=== PATIENT | female | born 1950 | race Caucasian/White ===

== ENCOUNTER 2017-03-25 20:50 | Emergency (ER) | payer SELFPAY ==
--- NOTE | 2017-03-25 21:08 | PDOC ---
Attending Attestation - Resident Resident Name: Yvon Gonzalez - ED Attending Attestation I have performed the following: I have examined & evaluated the patient, The case was reviewed & discussed with the resident, I agree w/resident's findings & plan, Exceptions are as noted - HPI HPI: 03/25/17 23:46 66 yo female has felt lightheaded and fatigued -she DENIES chest pain,dyspnea,abdominal pain,visual changes 03/25/17 23:53 - Physicial Exam PE: 03/25/17 23:47 wnwd 66 yo presents alert and converant. States she felt light headed and "out of sorts" Neuro no gross focal neuro deficits, motor strength 5/5 bilaterally. no ataxia, she able to ambulate to go to bathroom,no facial droop, no slurred speech,no numbness,no tingling head - normocephalic,nontraumatic eyes efrem eomi lungs cta b/l cvs [id number] abd soft,nontender extremities full range of motion,no deformity - Medical Decision Making 03/26/17 00:12 pt discharged home/ ct head no acute intracranial pathology.neuro no focal neuro deficits/ labs unremarkable, ekg nsr,neg trop
[2017-03-25] MEDS ORDERED: MECLIZINE HCL 25 MG TABLET (FP) PO ONE (21:22)
--- NOTE | 2017-03-25 21:23 | PDOC ---
History of Present Illness - General Stated Complaint: DIZZINIES/NAUSEAU Time Seen by Provider: 03/25/17 21:05 History Source: Patient Exam Limitations: No Limitations - History of Present Illness Initial Comments: 03/25/17 21:29 66 y.o. F with unknown pmh presenting with lightheadedness. Patient states she began having cold symptoms on Friday night and then began feeling lightheaded x 2 hours. Patient states she feels lightheaded at rest, but worsens upon sitting up. Patient endorses mild nausea as well as cold symptoms (malaise, cough). Patient denies fever,chills, vomiting, chest pain, sob, abdominal pain, neurological symptoms. PSH: denies All: nkda SH: denies PCP: Does not have one currently Review of Systems - Review of Systems Able to Perform ROS?: Yes Comments:: 03/25/17 21:31 GENERAL/CONSTITUTIONAL: No fever or chills. No weakness. HEAD, EYES, EARS, NOSE AND THROAT: No change in vision. No ear pain or discharge. No sore throat. CARDIOVASCULAR: No chest pain or shortness of breath RESPIRATORY: +cough, No wheezing, or hemoptysis. GASTROINTESTINAL: +nausea, No vomiting, diarrhea or constipation. GENITOURINARY: No dysuria, frequency, or change in urination. MUSCULOSKELETAL: No joint or muscle swelling or pain. No neck or back pain. SKIN: No rash NEUROLOGIC: No headache, vertigo, loss of consciousness, or change in strength/ sensation. ENDOCRINE: No increased thirst. No abnormal weight change HEMATOLOGIC/LYMPHATIC: No anemia, easy bleeding, or history of blood clots. ALLERGIC/IMMUNOLOGIC: No hives or skin allergy. *Physical Exam - Physical Exam Comments: 03/25/17 21:32 GENERAL: Awake, alert, and fully oriented, in no acute distress HEAD: No signs of trauma, normocephalic, atraumatic EYES: PERRLA, EOMI, sclera anicteric, conjunctiva clear ENT: Auricles normal inspection, hearing grossly normal, nares patent, oropharynx clear without exudates. Dry mucosa NECK: Normal ROM, supple, no lymphadenopathy, JVD, or masses. No carotid bruits LUNGS: No distress, speaks full sentences, clear to auscultation bilaterally HEART: Regular rate and rhythm, normal S1 and S2, no murmurs, rubs or gallops, peripheral pulses normal and equal bilaterally. ABDOMEN: Soft, nontender, normoactive bowel sounds. No guarding, no rebound. No masses EXTREMITIES: Normal inspection, Normal range of motion, no edema. No clubbing or cyanosis. NEUROLOGICAL: Cranial nerves II through XII grossly intact. Normal speech, normal gait, no focal sensorimotor deficits SKIN: Warm, Dry, normal turgor, no rashes or lesions noted. Medical Decision Making - Medical Decision Making 03/25/17 21:32 66 y.o. F with unknown pmh presenting with lightheadedness. Plan: cbc, cmp, sx control, ekg, cardiac profile
[2017-03-25 21:36] VITALS: TEMP 98; BMI 35.9
[2017-03-25] MEDS ORDERED: MECLIZINE HCL 25 MG TABLET (FP) ONE (21:38)
[2017-03-25 21:54] LABS: BASOPHIL 0.7 % (0-2.0); EOSINOPHIL 1.4 % (0-4.5); MCH 26.2 pg (25.7-33.7); MCHC 33.3 g/dl (32.0-36.0); MEAN CELL VOLUME 78.6 fl (80-96); MEAN PLT VOLUME 8.6 fl (7.5-11.1); PLATELET COUNT 241 K/MM3 (134-434); RDW 14.4 % (11.6-15.6); WHITE BLOOD COUNT 6.6 K/mm3 (4.0-10.0)
[2017-03-25 22:24] LABS: ALBUMIN 3.5 g/dl (3.4-5.0); ANION GAP 10 (8-16); BILIRUBIN,TOTAL 0.2 mg/dL (0.2-1.0); CO2 28 mmol/L (21-32); CREATININE 0.6 mg/dL (0.55-1.02); GLUCOSE,RANDOM 113 mg/dL (74-106); SGOT/AST 9 U/L (15-37); SGPT/ALT 20 U/L (12-78); TOT PROT 6.9 g/dl (6.4-8.2)
[2017-03-25 22:26] LABS: ALK PHOS 88 U/L (45-117); CPK 43 IU/L (26-192); TROPONIN I < 0.02 ng/ml (0.00-0.05)
[2017-03-25 22:31] LABS: URINE APPEARANCE CLEAR; URINE BILIRUBIN NEGATIVE (NEGATIVE); URINE BLOOD 1+ (NEGATIVE); URINE COLOR STRAW; URINE GLUCOSE (UA) NEGATIVE (NEGATIVE); URINE KETONE NEGATIVE (NEGATIVE); URINE NITRITE NEGATIVE (NEGATIVE); URINE PROTEIN NEGATIVE (NEGATIVE); URINE UROBILINOGEN NEGATIVE mg/dL (0.2-1.0)
[2017-03-25 22:41] LABS: URINE MUCUS RARE; URINE RBC <1 /hpf (0-3); URINE WBC <1 /hpf (3-5)
--- NOTE | 2017-03-25 23:08 | PDOC ---
NIH Stroke Scale - Last Known Well Date/Time & Onset Date Last Known Well: 03/25/17 Time Last Known Well: 08:00 - Initial Evaluation Level of consciousness: Alert Ask patient the month and their age: Answers both correctly Ask patient to open & close eyes; make fist and let go: Obeys both correctly Best gaze (horizontal eye movement): Normal Visual field testing: No visual field loss Facial paresis (Show teeth/raise eyebrows/close eyes tight): Normal symmetrical movement Motor Function: Left Arm: Normal Motor Function: Right Arm: Normal (extends arm 90 (or 45) degrees for 10 seconds without drift Motor Function: Left Leg: Normal (extends leg 30 degrees for 5 seconds without drift) Motor Function: Right Leg: Normal (extends leg 30 degrees for 5 seconds without drift) Limb Ataxia: No ataxia Sensory(Use pinprick test arms,legs,trunk,face/side to side): Normal Best language (Describe picture, name items, read sentences): No Aphasia Dysarthria (read several words): Normal articulation Extinction and Inattention: No abnormality - Total Score NIH Stroke Scale Score: 0
--- NOTE | 2017-03-26 00:15 | PDOC ---
*Physical Exam - Vital Signs Last Vital Signs Temp Pulse Resp BP Pulse Ox 98 F 82 18 148/78 98 03/25/17 21:35 03/25/17 21:35 03/25/17 21:35 03/25/17 21:35 03/25/17 21:35 ED Treatment Course - LABORATORY CBC & Chemistry Diagram: 03/25/17 21:30 03/25/17 21:30 - ADDITIONAL ORDERS Additional order review: Laboratory Results 03/25/17 03/25/17 22:23 21:30 Sodium 139 Potassium 3.5 Chloride 101 Carbon Dioxide 28 Anion Gap 10 BUN 10 Creatinine 0.6 Creat Clearance w eGFR > 60 Random Glucose 113 H Calcium 8.0 L Total Bilirubin 0.2 AST 9 L ALT 20 Alkaline Phosphatase 88 Creatine Kinase 43 Troponin I < 0.02 Total Protein 6.9 Albumin 3.5 Urine Color Straw Urine Appearance Clear Urine pH 6.0 Urine Protein Negative Urine Glucose (UA) Negative Urine Ketones Negative Urine Blood 1+ H Urine Nitrite Negative Urine Bilirubin Negative Urine Urobilinogen Negative Urine RBC <1 Urine WBC <1 Ur Epithelial Cells Rare Urine Mucus Rare 03/25/17 21:30 RBC 4.82 MCV 78.6 L MCHC 33.3 RDW 14.4 MPV 8.6 Neutrophils % 63.0 Lymphocytes % 28.4 Monocytes % 6.5 Eosinophils % 1.4 Basophils % 0.7 - RADIOLOGY Radiology Studies Ordered: Category Date Time Status HEAD CT WITHOUT CONTRAST [CT] Stat CT Scan 03/25/17 22:20 Completed CHEST X-RAY PORTABLE* [RAD] Stat Radiology 03/25/17 22:19 Taken - Medications Given in the ED: ED Medications Discontinued Medications Generic Name Dose Route Start Last Admin Trade Name Tiffanie PRN Reason Stop Dose Admin Meclizine HCl 25 mg 03/25/17 21:22 03/25/17 21:40 Antivert - PO 03/25/17 21:23 25 mg ONCE ONE Administration *DC/Admit/Observation/Transfer Diagnosis at time of Disposition: Lightheadedness - Discharge Dispostion Disposition: HOME Condition at time of disposition: Stable - Patient Instructions Printed Discharge Instructions: DI for Dizziness-Nonvertigo Additional Instructions: please folow up with a doctor Our clinic is at [address] [place] [address]
[2017-03-26 00:19] LABS: INR 1.04 (0.82-1.09); PROTHROMBIN TIME (PATIENT) 11.7 SEC (9.98-11.88)
[2017-03-26 00:25] VITALS: BP 141/67; PULSE 87
[2017-03-26 08:58] LABS: URINE LEUK ESTERASE Negative (NEGATIVE)
--- NOTE | 2017-03-26 11:48 | EKG ---
Test Reason : Blood Pressure : / mmHG Vent. Rate : 082 BPM Atrial Rate : 082 BPM P-R Int : 166 ms QRS Dur : 086 ms QT Int : 396 ms P-R-T Axes : 060 019 056 degrees QTc Int : 462 ms NORMAL SINUS RHYTHM NORMAL ECG WHEN COMPARED WITH ECG OF 22-APR-2008 14:40, NO SIGNIFICANT CHANGE WAS FOUND Confirmed by MEE DE GUZMAN MD ([id number]) on 03/26/2017 11:48:27 AM Referred By: Confirmed By:MEE DE GUZMAN MD
== END 2017-03-26 00:31 | disposition home or self-care (01) ==
LOC: JER 20:50
DX: R42 Dizziness and giddiness (principal)
CPT/HCPCS: 36415; 70450-TC; 71010-TC; 80053; 81003; 81015; 82550; 84484; 85025; 85610; 86850; 86900; 86901; 93005; 93010; 99283-25

== ENCOUNTER 2023-06-23 21:34 | Emergency (ER) | payer OTHER ==
[2023-06-23 21:39] VITALS: RESP 18; TEMP 98.3; BMI 37.5
[2023-06-23] MEDS ORDERED: LIDOCAINE 4% PATCH TP ONE ×2 (22:08→22:11)
[2023-06-23] MEDS ORDERED: FAMOTIDINE 20 MG/50 ML IVPB 20 MG/50 ML MG IVPB ONE ×2 (22:24→22:40)
[2023-06-23] MEDS ORDERED: MAG HYDROX/AL HYDROX/SIMETH 30 ML UNIT-DOSE CUP PO ONE (22:24)
[2023-06-23] MEDS ORDERED: KETOROLAC TROMETHAMINE 15 MG/ML VIAL IVPUSH ONE (22:25)
[2023-06-23 22:31] LABS: BASO % 1.1 % (0-2.0); EOS % 1.3 % (0-4.5); HEMATOCRIT 37.9 % (32.4-45.2); HEMOGLOBIN 12.4 GM/dL (10.7-15.3); LYMPH % 38.8 % (8-40); MCH 26.1 pg (25.7-33.7); MCHC 32.6 g/dl (32.0-36.0); MEAN CELL VOLUME 80.1 fl (80-96); MEAN PLT VOLUME 8.5 fl (7.5-11.1); NEUT % 51.8 % (42.8-82.8); PLATELET COUNT 315 10^3/uL (134-434); RBC 4.74 M/mm3 (3.60-5.2); WHITE BLOOD COUNT 7.9 K/mm3 (4.0-10.0)
[2023-06-23] MEDS ORDERED: MAG HYDROX/AL HYDROX/SIMETH 30 ML UNIT-DOSE CUP ONE (22:40)
[2023-06-23] MEDS ORDERED: KETOROLAC TROMETHAMINE 15 MG/ML VIAL ONE (22:40)
[2023-06-23 22:41] LABS: INR 1.07 (0.83-1.09); PROTHROMBIN TIME (PATIENT) 12.4 SEC (9.7-13.0)
[2023-06-23 22:43] LABS: ACTIVATED PTT 30.5 SECONDS (25.2-36.5); POTASSIUM 4.3 mmol/L (3.5-5.1)
[2023-06-23 22:44] LABS: CALCIUM 8.6 mg/dL (8.5-10.1)
[2023-06-23 22:46] LABS: ALBUMIN 3.4 g/dl (3.4-5.0); BLOOD UREA NITROGEN 16.4 mg/dL (7-18); MAGNESIUM 1.9 mg/dL (1.8-2.4)
[2023-06-23 22:49] LABS: CREATININE 0.7 mg/dL (0.55-1.3)
[2023-06-23 22:50] LABS: BILIRUBIN,TOTAL 0.2 mg/dL (0.2-1); TOT PROT 6.9 g/dl (6.4-8.2)
[2023-06-23] MEDS ORDERED: BUPRENORPHINE/NALOXONE 8 MG/2 MG FILM PACKET SL ONE (23:10)
[2023-06-23 23:18] LABS: URINE APPEARANCE CLEAR; URINE BILIRUBIN NEGATIVE (NEGATIVE); URINE COLOR YELLOW; URINE GLUCOSE (UA) NEGATIVE (NEGATIVE); URINE KETONE NEGATIVE (NEGATIVE); URINE LEUK ESTERASE NEGATIVE (NEGATIVE); URINE NITRITE NEGATIVE (NEGATIVE); URINE PROTEIN NEGATIVE (NEGATIVE); URINE UROBILINOGEN 0.2 mg/dL (0.2-1.0)
[2023-06-24 00:13] VITALS: BP 122/86; PULSE 76
[2023-06-24] MEDS ORDERED: LIDOCAINE PATCH REMOVAL MC ONE (22:00)
== END 2023-06-24 00:13 | disposition home or self-care (01) ==
LOC: JER 21:34
PROC: 3E033GC Introduction of Other Therapeutic Substance into Peripheral Vein, Percutaneous Approach (ICD-10-PCS; principal; 2023-06-23)
PROC: 3E0333Z Introduction of Anti-inflammatory into Peripheral Vein, Percutaneous Approach (ICD-10-PCS; 2023-06-23)
DX: R07.9 Chest pain, unspecified (principal); M54.50 Low back pain, unspecified; M54.6 Pain in thoracic spine; R10.13 Epigastric pain
CPT/HCPCS: 36415; 71046-TC-FY; 80053; 81003; 83690; 83735; 84484; 85025; 85610; 85730; 87086; 93005; 93010; 99285-25

== ENCOUNTER 2023-10-05 08:26 | Emergency (ER) | payer OTHER ==
[2023-10-05 08:36] VITALS: BP 139/66; PULSE 92; RESP 20; TEMP 97.3; BMI 38.0
[2023-10-05] MEDS ORDERED: ACETAMINOPHEN INJECTION 100 ML IVPB ONE (10:24)
[2023-10-05] MEDS: ACETAMINOPHEN 1000 MG/100 ML BAG IVPB ONE (10:54)
[2023-10-05] MEDS: morphine CARPU-JECT 2 MG/1 ML DISP.SYRIN IVPUSH ONE (12:55)
== END 2023-10-05 16:21 | disposition home or self-care (01) ==
LOC: JER 08:26
PROC: 3E030NZ Introduction of Analgesics, Hypnotics, Sedatives into Peripheral Vein, Open Approach (ICD-10-PCS; principal; 2023-10-05)
PROC: 3E030GC Introduction of Other Therapeutic Substance into Peripheral Vein, Open Approach (ICD-10-PCS; 2023-10-05)
DX: S42.295A Other nondisplaced fracture of upper end of left humerus, initial encounter for closed fracture (principal); W17.89XA Other fall from one level to another, initial encounter
CPT/HCPCS: 73030-TC-LT-FY; 73060-TC-LT-FY; 73200-TC-RT; 99284-25; J0131